=== PATIENT | male | born 1960 | race Caucasian/White ===

== ENCOUNTER 2018-02-12 03:26 | Observation (INO) | payer OTHER ==
[~2018-02-12] VITALS: Ht 190.5 cm; Wt 118.8 kg
[2018-02-12] VITALS (16 sets, daily range): BP systolic 109–129; BP diastolic 81–95
[~2018-02-12 03:26] MED LIST: ALBU2.5V36 INH; AMOX-559 PO; NAPR220C12 PO; PER PO; TEST1.25 TD
[2018-02-12 06:33] LABS: PLATELET COUNT, AUTOMATED 218 K/uL (150-450)
[2018-02-12] MEDS ORDERED: ceFAZolin(*) 1 GM VIAL 3 GM in NS(*) 0.9% 100 ML BAG 100 ML IVPB ONE (06:45)
[2018-02-12] MEDS ORDERED: MIDAZOLAM 2 MG/2 ML VIAL IVP PRN (06:45)
[2018-02-12] MEDS ORDERED: LIDOCAINE/SOD BICARB 8.4% SYR ID ONE (06:45)
[2018-02-12] MEDS ORDERED: FAMOTIDINE 20 MG TAB PO ONE (06:45)
[2018-02-12] MEDS ORDERED: NORMOSOL R SOLN(*) 1000 ML BAG 1,000 ML IV PRN (06:45)
[2018-02-12] MEDS ORDERED: SUGAMMADEX SOD 200 MG/2 ML SDV ONE (06:56)
[2018-02-12] MEDS ORDERED: ROCURONIUM BROM 10 MG/ML 10 ML ONE (06:56)
[2018-02-12] MEDS ORDERED: PROPOFOL EMUL(*) 10MG/ML 20 ML 20 ML ONE (06:56)
[2018-02-12] MEDS ORDERED: LIDOCAINE MPF 1% 5 ML VIAL ONE (06:56)
[2018-02-12] MEDS ORDERED: DEXAMETHASONE SOD 4 MG/ML VIAL ONE (06:56)
[2018-02-12] MEDS ORDERED: fentaNYL CITR 250 MCG/5 ML AMP ONE (06:56)
[2018-02-12] MEDS ORDERED: ONDANSETRON 4 MG/2 ML VIAL ONE (06:56)
[2018-02-12] MEDS ORDERED: KETAMINE HCL 200 MG/20 ML MDV ONE (06:59)
[2018-02-12] MEDS ORDERED: ROPIVACAINE 0.5% 20 ML VIAL ONE (07:21)
[2018-02-12] MEDS ORDERED: fentaNYL CITR 100 MCG/2 ML AMP ONE ×3 (10:52→11:51)
[2018-02-12] MEDS ORDERED: ACETAMINOPHEN(*)1000 MG/100 ML 100 ML IVPB ONE (11:54)
[2018-02-12] MEDS ORDERED: ONDANSETRON 4 MG/2 ML VIAL IVP PRN (11:55)
[2018-02-12] MEDS ORDERED: HYDROmorphone PCA 6 MG/30 ML IV PRN (11:55)
[2018-02-12] MEDS ORDERED: FLUSH 10 ML SYR IVP PRN (11:55)
[2018-02-12] MEDS ORDERED: NALOXONE HCL 0.4 MG/ML VIAL IVP PRN (11:55)
[2018-02-12] MEDS ORDERED: KETOROLAC 30 MG/ML VIAL ONE (11:57)
[2018-02-12] MEDS: ACETAMINOPHEN(*)1000 MG/100 ML 100 ML IVPB SCH ×2 (12:00→17:24)
--- NOTE | 2018-02-12 12:07 | Post Operative Progress Note ---
Post Operative Progress Note Date: February 12, 2018 Time: 11:59 Surgeon: Ramila Dictation number: [id number] Anesthesia: GETA by Dr. Galindo Pre-Op Diagnosis: Ventral incisional hernia Post-Op Diagnosis: LOUIS Findings: C/W dx Procedure(s): Robotic ventral hernia repair with mesh Specimen Removed:(May be N/A): None Complications: None Fluids: See anesthesia record Estimated Blood Loss: Minimal Date OP Note Dictated: February 12, 2018 Time OP Note Dictated: 12:00 RUMA LANDRY MD February 12, 2018 12:07
[2018-02-12] MEDS ORDERED: HYDROmorphone HCL 2 MG/ML SDV ONE (12:13)
[2018-02-12] MEDS: ceFAZolin(*) 2GM/D5W 50ML 50 ML IVPB SCH ×2 (12:23→20:47)
[2018-02-12] MEDS: NS(*) 0.9% 1000 ML BAG 1,000 ML IV PRN (16:25)
--- NOTE | 2018-02-12 17:07 | OPERATIVE REPORT 1 ---
EVENT DATE: February 12, 2018 SURGEON: Mata Mcgrath MD ANESTHESIOLOGIST: Stephen Good MD ANESTHESIA: General endotracheal anesthesia. PREOPERATIVE DIAGNOSIS Ventral incisional hernia. POSTOPERATIVE DIAGNOSIS Ventral incisional hernia. PROCEDURE PERFORMED Robotic ventral hernia repair with mesh. COMPLICATIONS None. CONDITION Stable. BLOOD LOSS Minimal. INDICATIONS This is a 57-year-old gentleman who presented to my office with a bulge at his umbilicus. I had performed a laparoscopic sigmoid colectomy on him a year and a half ago, and this was complicated by a coughing spell which resulted in a dehiscence after he had gone home, causing him to come back into the emergency room, and so I took him to surgery and closed the dehiscence. Over the last several months, he has noticed a bulge growing in this area. Exam is consistent with a hernia, and so he was consented for a robotic incisional hernia repair with mesh. DESCRIPTION OF PROCEDURE The patient was brought to the operating room, placed supine on the operating table. General endotracheal anesthesia was administered, and his abdomen was prepped and draped in a sterile fashion. Timeout was completed. I then anesthetized the skin in the right upper quadrant and made an 8 mm incision in the right subcostal skin. I used a Veress needle hooked up to the insufflator, inserted it in the abdomen without problems, and insufflated the abdomen to a pressure of 15 mmHg. I used the optical trocar with the camera and then focused. I inserted the first robotic port under direct visualization without any problems. Next under direct visualization, I placed a 12 mm port in the right lower quadrant and then an 8 mm port in the right mid abdomen. First, I noticed loops of intestine that were up and through the fascial defect. The fascial defect was measured, and it was 8 cm x 7 cm. Incidentally, I did put two V-Loc sutures in as well as a Ventralex mesh into the abdomen. The Ventralex mesh was a 15 x 13 cm piece of mesh. I then stripped the peritoneum down from around the fascial defect and very carefully took the bowel out of the fascial defect. I did this without any injuries except there was one little serosal rent that I placed a single 3-0 silk suture into. Once the bowel was out, I got as much of the peritoneum out of the hernia as I could, but the skin was very thin in this area, and so I was not too aggressive because I did not want to burn the skin or devascularize the overlying skin. I did clean off the fascial defect circumferentially. I then closed the fascial defect with running V-Loc absorbable sutures, and this required two layers because there was some tension. I decreased some of the pressure in the abdomen down to 10 mmHg to help facilitate closure of the fascia. I then deployed the mesh, Prolene side against the abdominal wall, and so the nonadherent wall was out towards the bowel. I used V-Loc to sew all the way around the mesh so no bowel could get under the mesh. I then placed a strip right in the middle of the mesh to prevent fluid buildup between the mesh and the abdominal wall and to promote adherence. Once this was completed, I was very happy with the repair. The robot was then undocked, and I under direct visualization used the [employer] MoverWalker suture passer and closed the 12 mm fascia in the right lower quadrant with a [id number] 0 Vicryl suture. This was airtight when this was completed, and the fascial defect was obliterated. I then desufflated the abdomen and removed all the instruments and ports. I then palpated the hernia, and there was still quite a bit of pocket that the hernia had been occupying, so I anesthetized the midline skin and made a vertical incision right over the hernia. I then used a #1 Prolene suture and closed what amounted to scar tissue in the midline all the way from the cephalad to the caudad end of this. I could see the fascia that I had closed was well approximated in the deep portion of this wound robotically. Once I closed the scar tissue in the midline, I excised a little bit of the overlying skin which had been stretched out. I then closed some of the subcutaneous tissue with running 3-0 Vicryl suture, and the skin was closed with running 4-0 Monocryl subcuticular sutures. I then cleaned and dried his abdomen and placed Steri-Strips over the incisions, followed by sterile surgical dressings. The patient was then awakened and extubated. He did do some coughing when he was being extubated and shortly thereafter, and I was putting counterpressure on his abdomen. We then put him in an abdominal binder , and he was transported to the recovery room in stable condition having tolerated the procedure without any apparent problems. WILMER
[2018-02-13] MEDS: ACETAMINOPHEN(*)1000 MG/100 ML 100 ML IVPB SCH ×3 (01:28→11:20)
[2018-02-13] MEDS: NS(*) 0.9% 1000 ML BAG 1,000 ML IV PRN ×2 (01:29→11:44)
[2018-02-13] MEDS: ceFAZolin(*) 2GM/D5W 50ML 50 ML IVPB SCH (03:29)
[2018-02-13 05:41] VITALS: BP 124/80
--- NOTE | 2018-02-13 06:58 | General Surgery Progress Note ---
Subjective Progress Notes Subjective Only complaint is postop pain. Not very hungry. No flatus. Urinating without problems. Physical Exam Vital Signs Date Time Temp Pulse Resp B/P (MAP) Pulse Ox O2 Delivery O2 Flow Rate FiO2 02/13/18 05:41 98.0 70 16 124/80 (95) 92 Room Air 02/12/18 23:17 1.0 General Appearance: Alert, Awake, No Acute Distress, Afebrile GI: Other (Soft, appropriate postop TTP, dressings C/D/I.) Extremities: Warm, Perfused Result Diagram: 02/12/18 0626 Assessment and Plan Problems: (1) Incisional hernia Status: Chronic Assessment & Plan: 02/13/18: POD#1 s/p Robotic ventral/incisional hernia repair. Will work on pain control. Ambulation. PT/OT. Await flatus. Continue clear diet. Continue ICT ACCOUNT MANAGER, add toradol, continue IV tylenol. Pulmonary hygiene. Hopefully home tomorrow. Condition Stable. Time Spent: < 30 min Exam Sepsis Risk: No Definite Risk Problem Qualifiers (1) Incisional hernia: Obstruction and gangrene presence: without obstruction or gangrene Qualified Codes: K43.2 - Incisional hernia without obstruction or gangrene RUMA LANDRY MD February 13, 2018 06:58
[2018-02-13 07:24] VITALS: BP 112/85
[2018-02-13] MEDS: KETOROLAC 30 MG/ML VIAL IVP SCH ×2 (08:34→11:21)
[2018-02-13] MEDS ORDERED: PANTOPRAZOLE SOD 40 MG IV VIAL IVP SCH (09:00)
[2018-02-13 10:39] VITALS: Ht 190.5 cm; Wt 118.8 kg
[2018-02-13 11:04] VITALS: BP 129/87
[2018-02-13] MEDS ORDERED: DOCU-416 PO (14:23)
[2018-02-13] MEDS ORDERED: OXYC-854 PO (14:23)
--- NOTE | 2018-02-13 14:50 | Short(Outpt) Discharge Summary ---
Discharge Summary Reason for Hosp/Final Diag: (1) Incisional hernia Status: Chronic Hospital Course & Plan: 02/13/18: POD#1 s/p Robotic ventral/incisional hernia repair. Will work on pain control. Ambulation. PT/OT. Await flatus. Continue clear diet. Continue PHARMACY RESIDENT, add toradol, continue IV tylenol. Pulmonary hygiene. Hopefully home tomorrow. Departure Discharge to: Home, Self Care Discharge Instructions Home Meds Active Scripts Docusate Sodium (COLACE) 100 Mg Capsule, 1 CAP PO BID, #30 CAP 0 Refills TAKE WITH A FULL GLASS OF WATER Prov:RUMA LANDRY MD 02/13/18 Oxycodone Hcl/Acet 5/325 Mg (ENDOCET 5-325 TABLET) 1 Each Tablet, 1-2 TAB PO Q4H Y for PAIN, #30 TAB 0 Refills Prov:RUMA LANDRY MD 02/13/18 Reported Medications Naproxen Sodium (ALEVE) 220 Mg Capsule, 220 MG PO PRN Y for PAIN, CAPSULE 04/30/16 Follow up Referrals: General Surgery - 03/09/18 @ Surgery, General with Ruma Landry Md You have a follow up appointment scheduled with Dr. Landry on 03/09/18, at 11:15am. Diet: Regular Activity: No Heavy Lifting Special Instructions: You may remove the white surgical dressings on Friday, February 14, 2018, then you can shower. After showering, leave the incisions open to air but leave the steristrips in place until they fall off on their own. Do not immerse the incisions for 2 weeks. Wear the abdominal binder at all times other than while showering for the next month. Avoid any activities that involve straining or lifting more than 10 pounds for 6 weeks. Problem Qualifiers (1) Incisional hernia: Obstruction and gangrene presence: without obstruction or gangrene Qualified Codes: K43.2 - Incisional hernia without obstruction or gangrene RUMA LANDRY MD February 13, 2018 14:50
[2018-02-13] MEDS ORDERED: HYDROmorphone HCL 2 MG/ML SDV IVP PRN (14:55)
[2018-02-13 15:30] VITALS: BP 134/91
[2018-02-13] MEDS ORDERED: DOCUSATE SODIUM 100 MG CAP PO SCH (21:00)
== END 2018-02-13 18:25 | disposition home or self-care (01) ==
LOC: OR 03:26 → MED 14:10
PROVIDERS: ADMIT Surgery; ATTEND Surgery
DX: K43.2 Incisional hernia without obstruction or gangrene (principal)
CPT/HCPCS: 36415; 49654; 85025; 97161; 97165; C1781; C9113; G0378; J0131; J0690; J1100; J1170; J1885; J2001; J2405; J2704; J2795; J3010; J3490; J7030; J7050; S2900

== ENCOUNTER → 2018-03-05 | Outpatient (CLI) | payer OTHER ==
[2018-02-13 10:39] VITALS: BMI 32.7
[~2018-03-05] MED LIST changes: +DOCU-416 PO; +IOPAMIDOL 76% 75 ML INFUS BTL 75 ML ONE; +OXYC-854 PO
--- NOTE | 2018-03-05 13:10 | RADIOLOGY IMAGING REPORT ---
FACILITY: [facility] PATIENT NAME: Italo Johnson : 1960 MR: [id number] V: [id number] EXAM DATE: ORDERING PHYSICIAN: RUMA PATRICIO TECHNOLOGIST: Location: [facility] - [place] Patient: Italo Johnson : 1960 Visit/Account:[id number] Date of Sevice: 03/05/2018 ABDOMEN/PELVIS WITH CONTRAST HISTORY: Generalized abdominal pain, recent umbilical hernia repair. TECHNIQUE: CT abdomen and pelvis 100 cc of Isovue 370 IV. One of the following dose optimization te chniques was utilized in the performance of this exam: automated exposure control; adjustment of the mA and/or kV according to the patient's size; or use of an iterative reconstruction technique. Speci fic details can be referenced in the facility's radiology CT exam operational policy. COMPARISON: CT abdomen and pelvis 03/21/2016. FINDINGS: Liver/gallbladder: The liver demonstrates normal enhancement. Gallbladder is unremarkable. Spleen: Normal. Adrenals: Normal. Pancreas: Normal enhancement without evidence of mass. Kidneys/: The right and left kidney demonstrate normal enhancement without evidence of hydronephro sis or mass. Both ureters are normal. Pelvis: Urinary bladder is normal. GI: There are surgical changes with anastomosis in the sigmoid colon. Diverticular changes are seen, without evidence of pericolonic fat stranding or inflammation. Small bowel and stomach are normal. Vessels/spaces/nodes: Negative. Bones/soft tissues: There are postoperative changes from ventral hernia repair with mesh identified. There is no evidence of subcutaneous fluid collection or abscess. Visualized lung bases: Clear. IMPRESSION: 1. Postoperative changes from ventral abdominal hernia repair with mesh. No evidence of loculated flu id collection or abscess. 2. Postoperative changes with anastomosis in the sigmoid colon. 3. Sigmoid diverticular changes. No evidence of diverticulitis. Report Dictated By: Liam Patel at 03/05/2018 1:02 PM Report E-Signed By: Liam Patel at 03/05/2018 1:06 PM [id number]
== END ==
LOC: CT 12:07
PROVIDERS: ATTEND Family Medicine
DX: K57.30 Diverticulosis of large intestine without perforation or abscess without bleeding (principal); Z98.890 Other specified postprocedural states
CPT/HCPCS: 74177; Q9967

== ENCOUNTER 2018-07-14 08:07 | Inpatient (IN) | payer OTHER ==
[2018-07-14] VITALS (15 sets, daily range): BP systolic 97–133; BP diastolic 72–91
[~2018-07-14] VITALS: Ht 190.5 cm; Wt 114.0 kg
[~2018-07-14 08:07] MED LIST changes: -IOPAMIDOL 76% 75 ML INFUS BTL 75 ML ONE
[2018-07-14] MEDS ORDERED: ALB6.7R INH (08:19)
[2018-07-14] MEDS ORDERED: METH4TAB66 PO (08:19)
[2018-07-14] MEDS ORDERED: AMOX-559 PO (08:19)
[2018-07-14] MEDS ORDERED: ALBU2.5V36 INH (08:19)
[2018-07-14] MEDS ORDERED: LR IV ONE (08:35)
--- NOTE | 2018-07-14 08:49 | EKG ---
[place] [facility] [place]IENT NAME: EDWIN CHARLES : [id number] MR: [id number] V: [id number] EXAM DATE: ORDERING PHYSICIAN: COLIN BAEZ TECHNOLOGIST: JAVY Toscano Reason : SYNCOPE Blood Pressure : / mmHG Vent. Rate : 122 BPM Atrial Rate : 122 BPM P-R Int : 142 ms QRS Dur : 088 ms QT Int : 328 ms P-R-T Axes : 079 233 057 degrees QTc Int : 467 ms Sinus tachycardia Right superior axis deviation Pulmonary disease pattern Right ventricular hypertrophy Abnormal ECG When compared with ECG of 01-AUG-2016 10:17, Relatively unchanged except now tachycardic Confirmed by CHRISTIANA WILBURN ([id number]) on 07/14/2018 4:03:19 PM Referred By: NESTOR Confirmed By:CHRISTIANA WILBURN
[2018-07-14 08:51] LABS: PLATELET COUNT, AUTOMATED 154 K/uL (150-450)
--- NOTE | 2018-07-14 08:59 | RADIOLOGY IMAGING REPORT ---
FAC[place] [facility] [place]IENT NAME: Italo Johnson : 1960 MR: [id number] V: [id number] EXAM DATE: ORDERING PHYSICIAN: COLIN BAEZ TECHNOLOGIST: Location: [facility] - [place] Patient: Italo Johnson : 1960 Visit/Account:[id number] Date of Sevice: 07/14/2018 CHEST SINGLE AP HISTORY: Shortness of breath COMPARISON: Chest x-ray 05/03/2011 FINDINGS: Cardiomediastinal contours: Normal Lungs and pleura: Normal Bones/soft tissues: Normal Other findings: None significant IMPRESSION: 1. No acute cardiopulmonary disease. No change. Report Dictated By: Vidal Nuñez MD at 07/14/2018 8:53 AM Report E-Signed By: Viadl Nuñez MD at 07/14/2018 8:54 AM WSN:[id number]
--- NOTE | 2018-07-14 09:32 | ER Report ---
History and Physical Time Seen By MD: 08:20 Hx. of Stated Complaint: Pt had syncopal episode this a.m. while walking out to car. States he's been being treated for a week for a sinus infection. O2 sat 84% on room air, heart rate 127 initially. (COLIN BAEZ MD) HPI/ROS CHIEF COMPLAINT: shortness of breath, syncope HISTORY OF PRESENT ILLNESS: Patient presents after syncopal episode today. Patient has had one week of gradually increasing shortness of breath. Patient was treated 2 weeks ago for sinusitis with Augmentin and finished medication one week ago. Since then he hasn't had gradually increasing shortness of breath with dry cough. Patient was seen 2 days ago at urgent care and was given inhaler which she has taken 3 times. States that this slightly helps his shortness of breath. He did not attempt at this morning. He woke up this morning feeling mildly short of breath. At one point he was sitting in kitchen shortly after awakening and began sweating. Patient then got up, walked outside to his truck, walked back and felt lightheaded and collapsed on his couch. He believes he had approximately one minute loss of consciousness. Patient did not have chest pain at this time. He notes mild chest pain with shortness of breath and cough. He continues to be short of breath here. Patient has some nausea. He denies vomiting, abdominal pain, recent travel, leg swelling. He does note that he has been getting some leg cramping on the right leg. REVIEW OF SYSTEMS: Constitutional: No fever, no chills. Eyes: No discharge. ENT: mild sore throat Cardiovascular: above Respiratory: above Gastrointestinal: No abdominal pain, no vomiting. Genitourinary: No hematuria. Musculoskeletal: No back pain. Skin: No rashes. Neurological: No headache. Remainder of the 14 system rev: Yes (COLIN BAEZ MD) Allergies: Coded Allergies: No Known Drug Allergies (Unverified , 07/14/18) Home Meds Reported Medications Albuterol Sulfate (PROVENTIL HFA) 6.7 Gm Inh, 1-2 PUFF INH 3-4XD, INH 07/14/18 Albuterol Sulfate 0.083% (ALBUTEROL SULFATE 0.083%) 2.5 Mg/3 Ml Vial.neb, 2.5 MG INH, INH 07/14/18 Amoxicillin/Pot Clav 875-125 Mg Tab (AUGMENTIN 875-125 TABLET) 1 Each Tablet, 1 TAB PO Q12H, TAB 07/14/18 Methylprednisolone (METHYLPREDNISOLONE) 4 Mg Tab.ds.pk, 4 MG PO DIRECTED, TAB 07/14/18 Naproxen Sodium (ALEVE) 220 Mg Capsule, 220 MG PO PRN PRN for PAIN, CAPSULE 04/30/16 Reviewed Nurses Notes: Yes Old Medical Records Reviewed: Yes (COLIN BAEZ MD) Hx Smoking: No (CHEWS TOBACCO: 2 cans per week) Smoking Status: Unknown if Ever Smoked Hx Substance Use Disorder: No Hx Alcohol Use: Yes (COLIN BAEZ MD) Constitutional Vital Sign - Last 24 Hours 07/14/18 07/14/18 07/14/18 07/14/18 08:07 08:12 08:16 08:17 Pulse ? 122 Resp 27 B/P (MAP) 132/88 (103) Pulse Ox 84 07/14/18 07/14/18 07/14/18 07/14/18 08:20 08:22 08:27 08:30 Temp 97.6 Pulse 113 113 114 Resp 18 22 18 B/P (MAP) 132/88 119/75 (90) Pulse Ox 84 93 93 O2 Delivery Room Air 07/14/18 07/14/18 07/14/18 08:32 08:37 08:42 Pulse 112 122 111 Resp 21 21 9 Pulse Ox 94 88 95 (HOLLIE BAEZ MD) Physical Exam General Appearance: The patient is alert, has no immediate need for airway protection and no signs of toxicity. Eyes: Pupils equal and round no pallor or injection. ENT, Mouth: Mucous membranes are moist. Respiratory: There are no retractions, lungs are clear to auscultation. Cardiovascular: tachycardia, no murmurs, no carotid bruit Gastrointestinal: Abdomen is soft and non tender, no masses, bowel sounds normal. Neurological: alert, oriented Skin: Warm and dry, no rashes. Musculoskeletal: Neck is supple non tender. right lower extremity; calf ttp, 2 punctate areas of ecchymosis DIFFERENTIAL DIAGNOSIS: After history and physical exam differential diagnosis was considered for shortness of breath including but not limited to pulmonary infectious process, COPD, asthma, pulmonary embolus and congestive heart failure.chest pain including but not limited to myocardial ischemia, pericarditis pulmonary embolus, chest wall pain, pleural inflammation and pulmo nary infectious causes. (COLIN BAEZ MD) Medical Decision Making Data Points Result Diagram: 07/14/18 0830 07/14/18 0830 Laboratory Hematology Test 07/14/18 00:00 07/14/18 08:30 07/14/18 11:32 07/14/18 12:27 D-Dimer Quantitative (PE/DVT) 11.20 ug/ml (0-0.50) Red Blood Count 5.13 M/uL (4.00-5.60) Mean Corpuscular Volume 101.6 fL (80.0-96.0) Mean Corpuscular Hemoglobin 34.6 pg (26.0-33.0) Mean Corpuscular Hemoglobin Concent 34.0 g/dL (32.0-36.0) Red Cell Distribution Width 13.1 % (11.5-14.5) Mean Platelet Volume 7.5 fL (7.2-11.1) Neutrophils (%) (Auto) 79.4 % (39.4-72.5) Lymphocytes (%) (Auto) 11.0 % (17.6-49.6) Monocytes (%) (Auto) 7.4 % (4.1-12.4) Eosinophils (%) (Auto) 1.7 % (0.4-6.7) Basophils (%) (Auto) 0.5 % (0.3-1.4) Nucleated RBC Relative Count (auto) 0.0 /100WBC Neutrophils # (Auto) 6.6 K/uL (2.0-7.4) Lymphocytes # (Auto) 0.9 K/uL (1.3-3.6) Monocytes # (Auto) 0.6 K/uL (0.3-1.0) Eosinophils # (Auto) 0.1 K/uL (0.0-0.5) Basophils # (Auto) 0.0 K/uL (0.0-0.1) Nucleated RBC Absolute Count (auto) 0.00 K/uL Peripheral Blood Smear No Y/N Sodium Level 137 mmol/L (137-145) Potassium Level 4.1 mmol/L (3.5-5.0) Chloride Level 103 mmol/L (98-107) Carbon Dioxide Level 23 mmol/L (22-30) Blood Urea Nitrogen 18 mg/dl (9-21) Creatinine 1.00 mg/dl (0.66-1.25) Glomerular Filtration Rate Calc > 60.0 Random Glucose 140 mg/dl (75-110) Calcium Level 8.8 mg/dl (8.4-10.2) Total Bilirubin 1.6 mg/dl (0.2-1.3) Aspartate Amino Transf (AST/SGOT) 27 U/L (0-35) Alanine Aminotransferase (ALT/SGPT) 26 U/L (0-56) Alkaline Phosphatase 104 U/L (0-126) Troponin I 0.054 ng/ml B-Type Natriuretic Peptide 95 pg/ml (0-100) Total Protein 7.1 g/dl (6.3-8.2) Albumin 3.8 g/dl (3.5-5.0) Lipase 31 U/L (23-300) Lactate 2.0 mmol/L (0.7-2.1) Chemistry Test 07/14/18 00:00 07/14/18 08:30 07/14/18 11:32 07/14/18 12:27 D-Dimer Quantitative (PE/DVT) 11.20 ug/ml (0-0.50) White Blood Count 8.3 k/uL (4.5-11.0) Red Blood Count 5.13 M/uL (4.00-5.60) Hemoglobin 17.7 g/dL (14.0-18.0) Hematocrit 52.1 % (42.0-52.0) Mean Corpuscular Volume 101.6 fL (80.0-96.0) Mean Corpuscular Hemoglobin 34.6 pg (26.0-33.0) Mean Corpuscular Hemoglobin Concent 34.0 g/dL (32.0-36.0) Red Cell Distribution Width 13.1 % (11.5-14.5) Platelet Count 154 K/uL (150-450) Mean Platelet Volume 7.5 fL (7.2-11.1) Neutrophils (%) (Auto) 79.4 % (39.4-72.5) Lymphocytes (%) (Auto) 11.0 % (17.6-49.6) Monocytes (%) (Auto) 7.4 % (4.1-12.4) Eosinophils (%) (Auto) 1.7 % (0.4-6.7) Basophils (%) (Auto) 0.5 % (0.3-1.4) Nucleated RBC Relative Count (auto) 0.0 /100WBC Neutrophils # (Auto) 6.6 K/uL (2.0-7.4) Lymphocytes # (Auto) 0.9 K/uL (1.3-3.6) Monocytes # (Auto) 0.6 K/uL (0.3-1.0) Eosinophils # (Auto) 0.1 K/uL (0.0-0.5) Basophils # (Auto) 0.0 K/uL (0.0-0.1) Nucleated RBC Absolute Count (auto) 0.00 K/uL Peripheral Blood Smear No Y/N Glomerular Filtration Rate Calc > 60.0 Calcium Level 8.8 mg/dl (8.4-10.2) Total Bilirubin 1.6 mg/dl (0.2-1.3) Aspartate Amino Transf (AST/SGOT) 27 U/L (0-35) Alanine Aminotransferase (ALT/SGPT) 26 U/L (0-56) Alkaline Phosphatase 104 U/L (0-126) Troponin I 0.054 ng/ml B-Type Natriuretic Peptide 95 pg/ml (0-100) Total Protein 7.1 g/dl (6.3-8.2) Albumin 3.8 g/dl (3.5-5.0) Lipase 31 U/L (23-300) Lactate 2.0 mmol/L (0.7-2.1) Coagulation Test 07/14/18 00:00 07/14/18 12:27 D-Dimer Quantitative (PE/DVT) 11.20 ug/ml (HOLLIE BAEZ MD) Microbiology Microbiology Date/Time Source Procedure Growth Status 07/14/18 08:58 Blood Peripheral Draw Blood Culture - Preliminary NO GROWTH SO FAR, SET LATE. REINCUBATED Resulted 07/14/18 08:30 Blood Peripheral Draw Blood Culture - Preliminary NO GROWTH SO FAR, SET LATE. REINCUBATED Resulted (HOLLIE BAEZ MD) EKG/Imaging EKG Interpretation 12 lead EKG: Rhythm: sinus tachycardia [place]: right axis deviation QRS: normal ST segments: normal [ ] Monitor Interpretation: Sinus Tachycardia (COLIN BAEZ MD) ED Course/Re-evaluation ED Course Episode of syncope today also accompanied by shortness of breath. Mildly tachypneic and mildly hypoxic when he arrived in the emergency department. A bedside ultrasound was performed and right heart strain was noted. A d-dimer was positive as well, and a CTA of the chest was obtained. The CTA of the chest shows by lateral PEs with evidence of right heart strain on CT scan. The patient was given heparin. TPA was considered given his right heart strain. He has been hemodynamically stable however. At this point he will be admitted to the ICU for further monitoring and anticoagulation. Decision to Disposition Date: Jul 14, 2018 Decision to Disposition Time: 13:27 (HOLLIE BAEZ MD) Depart Departure Latest Vital Signs Vital Signs Date Time Temp Pulse Resp B/P (MAP) Pulse Ox O2 Delivery O2 Flow Rate FiO2 07/14/18 08:42 111 9 95 07/14/18 08:30 119/75 (90) 07/14/18 08:20 97.6 Room Air (HOLLIE BAEZ MD) Impression: Primary Impression: Pulmonary embolism Condition: Improved Disposition: Admitted from ER Referrals: RUMA PATRICIO MD (PCP) Problem Qualifiers Primary Impression: Pulmonary embolism Pulmonary embolism type: other Chronicity: acute Acute cor pulmonale presence: without acute cor pulmonale Qualified Codes: I26.99 - Other pulmonary embolism without acute cor pulmonale COLIN BAEZ MD Jul 14, 2018 09:32 HOLLIE BAEZ MD Jul 14, 2018 13:29
[2018-07-14] MEDS ORDERED: IOPAMIDOL 76% 75 ML INFUS BTL 0 ML ONE (11:25)
[2018-07-14] MEDS ORDERED: NS(*) 0.9% 50 ML BAG 50 ML ONE (11:25)
[2018-07-14] MEDS ORDERED: IOPAMIDOL 76% 100 ML INFUS BTL 100 ML ONE (11:25)
[2018-07-14] MEDS ORDERED: HEPARIN (PORC) 5000 UN/ML VIAL IVP ONE (11:30)
[2018-07-14] MEDS ORDERED: [UNRECOGNIZED DRUG - OTHER] IV ONE ×2 (11:30→11:55)
[2018-07-14] MEDS ORDERED: HEPARIN* SOD/D5W 25000 U/500ML 500 ML IV ONE (12:00)
--- NOTE | 2018-07-14 12:39 | RADIOLOGY IMAGING REPORT ---
FACILITY: [facility] [place] PATIENT NAME: Italo Johnson : 1960 MR: [id number] V: [id number] EXAM DATE: ORDERING PHYSICIAN: COLIN BAEZ TECHNOLOGIST: Location: [facility] - [place], [place] Patient: Italo Johnson : 1960 Visit/Account:[id number] Date of Sevice: 07/14/2018 EXAMINATION: CT CHEST PULMONARY ANGIOGRAM COMPARISON: None available HISTORY: Shortness of breath. Elevated d-dimer. Lightheadedness. Dizziness. PROCEDURE: Pulmonary arterial phase imaging of the chest with 100 mL intravenous Isovue 370. Reconstr uction of the source data set includes multiplanar 2D in the sagittal and coronal planes, and 3D connie nstructed coronal slab MIP series. One of the following dose optimization techniques was utilized in the performance of this exam: Autom ated exposure control; adjustment of the mA and/or kV according to the patient's size; or use of an i terative reconstruction technique. Specific details can be referenced in the facility's radiology C T exam operational policy. FINDINGS: Pulmonary vasculature: There is good contrast opacification of the pulmonary arterial system. 3.6 cm dilated main pulmonary artery. Study is positive for a moderately large amount of embolus within the right more so than left lung. On the right, there is a small amount of nonocclusive embolus in the u pper lobar branch extending into a near occlusive anterior segmental and subsegmental embolus. Nonocc lusive thrombus is present in the interlobar artery and extends into both the right middle and lower lobe lobar vessels. There are multiple small nonocclusive segmental and subsegmental emboli within th e right middle and lower lobe. On the left, there is a near occlusive filling defect in the lingula s egmental branch as well as a few small occlusive subsegmental emboli. A nonocclusive embolus is in th e left lower lobar artery and extends into multiple predominantly nonocclusive segmental and subsegme ntal emboli. Cardiac and mediastinum: Cardiac chamber size is within normal limits although there is flattening of the interventricular septum with an elevated RV: LV ratio of 1.3. No pericardial effusion. No thorac ic aortic aneurysm. Lymph nodes: Negative. Lungs and pleura: Approximately 2.3 cm region of peripheral consolidation in the lateral lingula is m ost suspicious for pulmonary infarct. Patchy ill-defined tree-in-bud density in the left lower lobe s uperior segment is most suggestive of small airway inflammation. No pneumothorax, edema, or effusion. Airways: Negative. Upper abdomen: No acute findings. Proximal descending colon diverticulosis. Osseous structures: No acute findings. IMPRESSION: 1. The study is positive for a moderately large volume of pulmonary embolus within the right more so than left lung. 2. CT findings consistent with acute right ventricular strain. Pulmonary/critical care consultation i s recommended. 3. Small infarct in the lateral lingula. 4. Left lower lobe superior segment tree-in-bud density is most suggestive of small airway inflammati on. Results were discussed with COLIN BAEZ at 07/14/2018 12:32 PM. Report Dictated By: Braulio Chacon MD at 07/14/2018 12:24 PM Report E-Signed By: Braulio Chacon MD at 07/14/2018 12:34 PM WSN:[id number]
[2018-07-14 12:58] LABS: INR 1.17
[2018-07-14] MEDS ORDERED: NS(*) 0.9% 1000 ML BAG 1,000 ML IV PRN (14:59)
--- NOTE | 2018-07-14 15:42 | History & Physical ---
History of Present Illness History of Present Illness 58yo male with a h/o diverticulitis who came to the ER for progressive BRYANT and syncope. About 3-4 weeks ago, he noted BRYANT. Fort the last 2 weeks, he has had sinus infection symptoms, chest tightness with the BRYANT and increased tiredness. He was put on Amoxicillin, a steroid pack, albuterol inhaler and Flonase. The inhaler has helped a bit, but he has continued to have BRYANT. 3 days ago, he was at high elevation working on power lines. He could barely walk 100 yards. Today, he became very sweaty, but it cleared. He then started his truck, came back in the house and then felt like he was going to pass out. He made it to the couch before everything went black and he passed out. He came to the ER. He has had bilateral leg cramps for the last couple weeks, but no swelling. He doesn't smoke. His last colonoscopy was about 2 years ago. He has not had prostate cancer screening. His sister of a PE in her 30's. History Problems: (1) S/P colectomy Status: Chronic (2) Incisional hernia Status: Resolved (3) Postoperative wound dehiscence Status: Resolved (4) Diverticulitis large intestine w/o perforation or abscess w/o bleeding Status: Resolved Home Meds Reported Medications Albuterol Sulfate (PROVENTIL HFA) 6.7 Gm Inh, 1-2 PUFF INH 3-4XD, INH 07/14/18 Albuterol Sulfate 0.083% (ALBUTEROL SULFATE 0.083%) 2.5 Mg/3 Ml Vial.neb, 2.5 MG INH, INH 07/14/18 Amoxicillin/Pot Clav 875-125 Mg Tab (AUGMENTIN 875-125 TABLET) 1 Each Tablet, 1 TAB PO Q12H, TAB 07/14/18 Methylprednisolone (METHYLPREDNISOLONE) 4 Mg Tab.ds.pk, 4 MG PO DIRECTED, TAB 07/14/18 Naproxen Sodium (ALEVE) 220 Mg Capsule, 220 MG PO PRN PRN for PAIN, CAPSULE 04/30/16 Allergies: Coded Allergies: No Known Drug Allergies (Unverified , 07/14/18) 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 Rare alcohol use. Hx Smoking: No (CHEWS TOBACCO: 2 cans per week) Smoking Status: Unknown if Ever Smoked Caffeine Intake: Coffee Caffeine/Cups Per Day: 3 Hx Alcohol Use: Yes Hx Substance Use Disorder: No Social Drug Use: Never Review of Systems All Systems Reviewed/Normal: Yes, Except as Noted Exam Vital Signs Vital Signs Date Time Temp Pulse Resp B/P (MAP) Pulse Ox O2 Delivery O2 Flow Rate FiO2 07/14/18 14:50 98 16 94 Nasal Cannula 3 07/14/18 14:30 123/87 (99) 07/14/18 08:20 97.6 General Appearance: Alert, Awake, No Acute Distress Eyes: PERRLA Cardiovascular: Regular Rate and Rhythm, No JVD Respiratory: Clear to Auscultation GI: Abd Soft and Non-Tender (vertical scar inferior to umbilicus without any noticable hernia) Extremities: No Edema Integumentary: No Jaundice, No Cyanosis Medical Decision Making Data Points Result Diagram: 07/14/18 0830 07/14/18 0830 Item Value Date Time Mean Corpuscular Volume 101.6 fL H 07/14/18 0830 Platelet Count 154 K/uL 07/14/18 0830 Neutrophils (%) (Auto) 79.4 % H 07/14/18 0830 D-Dimer Quantitative (PE/DVT) 11.20 ug/ml H 07/14/18 0000 Prothromb Time International Ratio 1.17 07/14/18 1227 Lactate 2.0 mmol/L 07/14/18 1132 Lactate 2.0 mmol/L 07/14/18 0830 Troponin I 0.054 ng/ml 07/14/18 0830 B-Type Natriuretic Peptide 95 pg/ml 07/14/18 0830 Total Protein 7.1 g/dl 07/14/18 0830 Albumin 3.8 g/dl 07/14/18 0830 Lipase 31 U/L 07/14/18 0830 Total Bilirubin 1.6 mg/dl H 07/14/18 0830 Aspartate Amino Transf (AST/SGOT) 27 U/L 07/14/18 0830 Alanine Aminotransferase (ALT/SGPT) 26 U/L 07/14/18 0830 Alkaline Phosphatase 104 U/L 07/14/18 0830 EKG / Imaging EKG Interpretation Sinus tachy at 122bpm. No ST-T abnormalities. Poor R wave progression. Imaging CTA of Chest - 1. The study is positive for a moderately large volume of pulmonary embolus within the right more so than left lung. 2. CT findings consistent with acute right ventricular strain. Pulmonary/critical care consultation is recommended. 3. Small infarct in the lateral lingula. 4. Left lower lobe superior segment tree-in-bud density is most suggestive of small airway inflammation. CXR - 1. No acute cardiopulmonary disease. No change. Assessment and Plan Problems: (1) Pulmonary embolism Status: Acute Assessment & Plan: He presented with 3-4 weeks of progressive BRYANT and then a syncopal episode today. Bilateral PE with evidence of right heart strain. BP/P stable. He has mild increased work of breathing and hypoxia. He has been started on a Heparin drip. Will change to Lovenox. His sister of a PE in her 30's. Hypercoagulable workup pending. Will watch in the ICU. Copies to: RUMA PATRICIO MD ; Venous Thromboembolism Antithrombotics Is Pt On Any Antithrombotics?: Yes Exam Sepsis Risk: No Definite Risk Problem Qualifiers (1) Pulmonary embolism: Pulmonary embolism type: other Chronicity: acute Acute cor pulmonale presence: without acute cor pulmonale Qualified Codes: I26.99 - Other pulmonary embolism without acute cor pulmonale CHRISTIANA WILBURN MD Jul 14, 2018 15:42
[2018-07-15] VITALS (11 sets, daily range): BP systolic 97–135; BP diastolic 70–86; Ht 190.5 cm; Wt 114.0 kg
[2018-07-15 06:35] LABS: PLATELET COUNT, AUTOMATED 140 K/uL (150-450)
[2018-07-15] MEDS: APIXABAN 2.5 MG TABLET PO SCH ×2 (10:10→20:34)
--- NOTE | 2018-07-15 12:02 | Hospitalist Progress Note ---
Subjective Progress Notes Subjective He reports "doing alright". Some minimal pleuritic pain. No dyspnea at rest. No bleeding on the heparin. Physical Exam Vital Signs Date Time Temp Pulse Resp B/P (MAP) Pulse Ox O2 Delivery O2 Flow Rate FiO2 07/15/18 11:25 105 16 113/86 (95) 92 Nasal Cannula 2.0 07/15/18 06:00 97.5 Intake and Output 07/15/18 07:00 Intake Total 4128 ml Balance 4128 ml Intake Oral 300 ml IV Total 3828 ml # Voids 2 General Appearance: Alert, Awake Cardiovascular: Regular Rate and Rhythm, No Edema Respiratory: Clear to Auscultation GI: Soft and Non-Tender Extremities: Warm, Perfused Psych: Alert & Oriented X3 Result Diagram: 07/15/1862207/15/18622 Monitor Interpretation: Normal Sinus Rhythm Assessment and Plan Problems: (1) Pulmonary embolism Status: Acute Assessment & Plan: He presented with 3-4 weeks of progressive BRYANT and then a syncopal episode yesterday. CT pulmonary angiogram showed bilateral PE with evidence of right heart strain. His BP/P have been stable. He has mild hypoxia and requiring minimal oxygen at this time. He was started on an IV Heparin drip. Will transition to Eliquis 10mg PO BID for first 7 days then to 5mg PO BID thereafter. His sister of a PE in her 30's. His hypercoagulable workup is still pending. He should be able to transfer out of the ICU today. Exam Sepsis Risk: No Definite Risk Problem Qualifiers (1) Pulmonary embolism: Pulmonary embolism type: other Chronicity: acute Acute cor pulmonale pr esence: without acute cor pulmonale Qualified Codes: I26.99 - Other pulmonary embolism without acute cor pulmonale VANESSA VALDIVIA MD Jul 15, 2018 12:02
[2018-07-16 04:14] VITALS: BP 114/76
[2018-07-16 05:47] LABS: PLATELET COUNT, AUTOMATED 142 K/uL (150-450)
[2018-07-16 08:10] VITALS: BP 128/73
[2018-07-16] MEDS: APIXABAN 2.5 MG TABLET PO SCH (08:21)
[2018-07-16] MEDS ORDERED: INFLUENZA VIRUS VAC 0.5ML SYR IM ONLY ONE (09:00)
[2018-07-16] MEDS ORDERED: APIX5TAB PO (09:30)
--- NOTE | 2018-07-16 09:36 | Hospitalist Depart ---
Discharge Summary Reason for Hosp/Final Diag: (1) Pulmonary embolism Status: Acute Hospital Course & Plan: He presented with 3-4 weeks of progressive dyspnea. A CT scan of the chest showed bilateral pulmonary emboli. He was initially started on Lovenox, but is now converted to Eliquis. He will require treatment with an initial loading dose of 10mg twice daily for 7 days and the can convert to maintenance dose of 5mg twice daily. He does have a family history of clotting disorders, and will likely require lifelong anticoagulation. Departure Latest Vital Signs Vital Signs 07/16/18 08:10 Temp 98.7 Pulse 99 Resp 20 B/P (MAP) 128/73 (91) Pulse Ox 93 O2 Delivery Nasal Cannula O2 Flow Rate 2.0 Weight (Pounds): 251 Weight (Ounces): 5.0 Result Diagram: 07/16/1838 07/16/18537 Condition: Improved Discharge: Home, Self Care Discharge Instructions Home Meds Active Scripts Apixaban (ELIQUIS) 5 Mg Tablet, 5 MG PO BID, #60 TAB Start after initial loading dose Prov:RUMA RIBEIRO DO 07/16/18 Apixaban (ELIQUIS) 5 Mg Tablet, 2 TAB PO BID, #28 TAB Prov:RUMA RIBEIRO DO 07/16/18 Discontinued Reported Medications Albuterol Sulfate (PROVENTIL HFA) 6.7 Gm Inh, 1-2 PUFF INH 3-4XD, INH 07/14/18 Albuterol Sulfate 0.083% (ALBUTEROL SULFATE 0.083%) 2.5 Mg/3 Ml Vial.neb, 2.5 MG INH, INH 07/14/18 Amoxicillin/Pot Clav 875-125 Mg Tab (AUGMENTIN 875-125 TABLET) 1 Each Tablet, 1 TAB PO Q12H, TAB 07/14/18 Methylprednisolone (METHYLPREDNISOLONE) 4 Mg Tab.ds.pk, 4 MG PO DIRECTED, TAB 07/14/18 Naproxen Sodium (ALEVE) 220 Mg Capsule, 220 MG PO PRN PRN for PAIN, CAPSULE 04/30/16 Diet: Regular Activity: As Tolerated Copies to: RUMA PATRICIO MD ; Venous Thromboembolism Antithrombotics Is Pt On Any Antithrombotics?: Yes Problem Qualifiers (1) Pulmonary embolism: Pulmonary embolism type: other Chronicity: acute Acute cor pulmonale presence: without acute cor pulmonale Qualified Codes: I26.99 - Other pulmonary embolism without acute cor pulmonale RUMA RIBEIRO DO Jul 16, 2018 09:36
== END 2018-07-16 12:15 | disposition home or self-care (01) | DRG 176 ==
LOC: ER 08:41 → ICU 14:26 → MED 07-15 12:25
PROVIDERS: ADMIT Internal Medicine; ATTEND Internal Medicine
DX: I26.99 Other pulmonary embolism without acute cor pulmonale (principal); R55 Syncope and collapse; F17.220 Nicotine dependence, chewing tobacco, uncomplicated; R00.0 Tachycardia, unspecified; Z23 Encounter for immunization; R09.02 Hypoxemia
CPT/HCPCS: 36415; 36416; 71045; 71275; 81241; 81291; 82040; 82247; 82310; 82374; 82435; 82565; 82947; 82948; 83090; 83605; 83690; 83880; 84075; 84132; 84155; 84295; 84450; 84460; 84484; 84520; 85025; 85300; 85303; 85306; 85379; 85520; 85610; 85730; 86147; 87040; 87088; 90674; 93005; J1644; J7050; J7120; Q9967

== ENCOUNTER → 2018-07-31 | Outpatient (CLI) | payer OTHER ==
[2018-07-15 16:04] VITALS: BMI 31.4
[~2018-07-31] MED LIST changes: +ALB6.7R INH; +APIX5TAB PO; +METH4TAB66 PO
--- NOTE | 2018-07-31 09:56 | RADIOLOGY IMAGING REPORT ---
FACILITY: [facility] PATIENT NAME: Italo Johnson : 1960 MR: [id number] V: [id number] EXAM DATE: ORDERING PHYSICIAN: GUNJAN INTERIANO TECHNOLOGIST: Location: [facility] Patient: Italo Johnson : 1960 Visit/Account:[id number] Date of Sevice: 07/31/2018 Right lower extremity venous Doppler duplex ultrasound scan. HISTORY: Edema, leg cramps, history of pulmonary embolism, on anticoagulation. COMPARISON: Chest CTA scan 07/14/2018. A color flow Doppler duplex ultrasound examination with spectral analysis was performed on the lower extremity. Noncompressible thrombus is present in the right anterior tibial veins and the right popl iteal vein to the level of the knee. The right trifurcation veins are partially obscured. The right superficial femoral vein and common femoral vein are otherwise unremarkable. Note that Doppler ultrasound is somewhat insensitive below the knee. A venous reflux study was not performed at this time. IMPRESSION: Positive for right lower extremity deep vein thrombosis. Report Dictated By: Sudeep Miner MD at 07/31/2018 9:49 AM Report E-Signed By: Sudeep Miner MD at 07/31/2018 9:52 AM WSN:[email or web address]
== END ==
LOC: US 03:28
PROVIDERS: ATTEND Physician Assistant Medical
DX: I82.401 Acute embolism and thrombosis of unspecified deep veins of right lower extremity (principal)

== ENCOUNTER 2019-01-29 10:33 | Emergency (ER) | payer OTHER ==
[2018-07-15 16:04] VITALS: Wt 117.9 kg
[2019-01-29] MEDS ORDERED: RIVA10TA PO (10:48)
[2019-01-29] MEDS ORDERED: NS(*) 0.9% 1000 ML BAG 1,000 ML IV ONE (11:00)
[2019-01-29 11:07] LABS: PLATELET COUNT, AUTOMATED 203 K/uL (150-450)
[2019-01-29 11:16] LABS: INR 1.17
--- NOTE | 2019-01-29 11:53 | EKG ---
FACILITY: [facility] - [place] PATIENT NAME: EDWIN CHARLES : [id number] MR: [id number] V: [id number] EXAM DATE: ORDERING PHYSICIAN: COLIN BAEZ TECHNOLOGIST: JAVY Toscano Reason : Blood Pressure : / mmHG Vent. Rate : 083 BPM Atrial Rate : 083 BPM P-R Int : 160 ms QRS Dur : 092 ms QT Int : 402 ms P-R-T Axes : 062 245 026 degrees QTc Int : 472 ms Sinus rhythm Right superior axis deviation Pulmonary disease pattern Right ventricular hypertrophy Abnormal ECG When compared with ECG of 14-JUL-2018 08:16, No significant change was found Confirmed by ЕКАТЕРИНА MENG ([id number]) on 01/29/2019 9:12:03 PM Referred By: Confirmed By:ЕКАТЕРИНА MENG
[2019-01-29] MEDS ORDERED: IOPAMIDOL 76% 150 ML INFUS BTL 150 ML ONE (12:17)
--- NOTE | 2019-01-29 12:17 | RADIOLOGY IMAGING REPORT ---
FACILITY: [facility] PATIENT NAME: Italo Johnson : 1960 MR: [id number] V: [id number] EXAM DATE: ORDERING PHYSICIAN: COLIN BAEZ TECHNOLOGIST: Location: [facility] Patient: Italo Johnson : 1960 Visit/Account:[id number] Date of Sevice: 01/29/2019 Exam type: CHEST PA LAT History: dyspnea Comparison: July 14, 2018. Findings: The lungs are free of acute effusions, infiltrates or edema. The cardiac silhouette is normal in siz e. The trachea is in midline. IMPRESSION: 1. No acute cardiac pulmonary process is seen Report Dictated By: Alisa Baxter MD at 01/29/2019 12:12 PM Report E-Signed By: Alisa Baxter MD at 01/29/2019 12:13 PM WSN:[id number]
[2019-01-29] MEDS ORDERED: NS(*) 0.9% 50 ML BAG 50 ML ONE (12:18)
--- NOTE | 2019-01-29 12:54 | ER Report ---
History and Physical Time Seen By MD: 10:50 Hx. of Stated Complaint: REPORTS FEELING DIZZY FOR THE LAST COULE OF DAYS. WORSE WITH POSITION CHANGE, STATES HE WAS SHORT OF BREATH YESTERDAY. HX OF DVT WAS ON ELIQUIS, SWITCHED TO XARELTO TODAY. HPI/ROS CHIEF COMPLAINT: Shortness breath, lightheadedness HISTORY OF PRESENT ILLNESS: 58-year-old male with history of DVT and PE in July, has been on Ahlquist but switched over to xarelto today. Presents with lightheadedness and mild shortness of breath on exertion that has been present for 2 days. Patient states that the lightheadedness was similar to when he had his PE and is concerned that he may have a repeat PE. Patient has been taking his medication as prescribed without missing doses. He has been changed to xarelto because his provider told him it was more effective. Patient denies chest pain. He denies syncope. He denies new leg swelling. He wears a ghazal chu sock on his right leg from prior DVT. He denies new travel or injuries. He has had no bleeding, vomiting, abd pain REVIEW OF SYSTEMS: Constitutional: No fever, no chills. Eyes: no blurred vision ENT: No sore throat. Cardiovascular: No chest pain, no palpitations. Respiratory: above Gastrointestinal: No abdominal pain, no vomiting. Genitourinary: no dysuria Musculoskeletal: No back pain. Skin: No rashes. Neurological: No headache. Remainder of the 14 system rev: Yes Allergies: Coded Allergies: No Known Drug Allergies (Unverified , 07/14/18) Home Meds Reported Medications Rivaroxaban 10 MG (Xarelto 10 MG) 10 Mg Tablet, 10 MG PO 01/29/19 Discontinued Scripts Apixaban (ELIQUIS) 5 Mg Tablet, 5 MG PO BID, #60 TAB Start after initial loading dose Prov:RUMA RIBEIRO DO 07/16/18 Apixaban (ELIQUIS) 5 Mg Tablet, 2 TAB PO BID, #28 TAB Prov:RUMA RIBEIRO DO 07/16/18 Reviewed Nurses Notes: Yes Old Medical Records Reviewed: Yes Hx Smoking: No (CHEWS TOBACCO: 2 cans per week) Smoking Status: Unknown if Ever Smoked Hx Substance Use Disorder: No Hx Alcohol Use: Yes Constitutional Vital Sign - Last 24 Hours 4/26/01/29/19 01/29/19 01/29/19 10:39 10:39 11:00 11:03 Temp 97.9 Pulse 102 80 Resp 16 23 B/P (MAP) 157/100 157/100 (119) 136/87 (103) Pulse Ox 93 92 O2 Delivery Room Air 01/29/19 01/29/19 11:30 11:33 Pulse 78 Resp 18 B/P (MAP) 121/84 (96) Pulse Ox 92 Physical Exam General Appearance: The patient is alert, has no immediate need for airway protection and no signs of toxicity. Eyes: Pupils equal and round no pallor or injection. ENT, Mouth: Mucous membranes are moist. Respiratory: There are no retractions, lungs are clear to auscultation. Cardiovascular: Regular rate and rhythm. no m/r/g Gastrointestinal: Abdomen is soft and non tender, no masses, bowel sounds normal. Neurological: alert, oriented, nad Skin: Warm and dry, no rashes. Musculoskeletal: Extremities are nontender, nonswollen and have full range of motion. DIFFERENTIAL DIAGNOSIS: After history and physical exam differential diagnosis was considered for shortness of breath including but not limited to pulmonary infectious process, COPD, asthma, pulmonary embolus and congestive heart failure, cva, ich, acs, or other cause of syncope Medical Decision Making Data Points Result Diagram: 01/29/19 1047 01/29/19 1047 Laboratory Hematology Test 01/29/19 10:47 Red Blood Count 4.80 M/uL (4.00-5.60) Mean Corpuscular Volume 99.6 fL (80.0-96.0) Mean Corpuscular Hemoglobin 34.0 pg (26.0-33.0) Mean Corpuscular Hemoglobin Concent 34.1 g/dL (32.0-36.0) Red Cell Distribution Width 12.8 % (11.5-14.5) Mean Platelet Volume 7.6 fL (7.2-11.1) Neutrophils (%) (Auto) 65.1 % (39.4-72.5) Lymphocytes (%) (Auto) 27.1 % (17.6-49.6) Monocytes (%) (Auto) 5.2 % (4.1-12.4) Eosinophils (%) (Auto) 1.8 % (0.4-6.7) Basophils (%) (Auto) 0.8 % (0.3-1.4) Nucleated RBC Relative Count (auto) 0.0 /100WBC Neutrophils # (Auto) 3.4 K/uL (2.0-7.4) Lymphocytes # (Auto) 1.4 K/uL (1.3-3.6) Monocytes # (Auto) 0.3 K/uL (0.3-1.0) Eosinophils # (Auto) 0.1 K/uL (0.0-0.5) Basophils # (Auto) 0.0 K/uL (0.0-0.1) Nucleated RBC Absolute Count (auto) 0.00 K/uL Prothrombin Time 14.9 seconds (12.0-14.4) Prothromb Time International Ratio 1.17 Activated Partial Thromboplast Time 36 seconds (23-35) D-Dimer Quantitative (PE/DVT) < 0.27 ug/ml (0-0.50) Sodium Level 137 mmol/L (137-145) Potassium Level 3.8 mmol/L (3.5-5.0) Chloride Level 107 mmol/L (98-107) Carbon Dioxide Level 22 mmol/L (22-30) Blood Urea Nitrogen 18 mg/dl (9-21) Creatinine 0.80 mg/dl (0.66-1.25) Glomerular Filtration Rate Calc > 60.0 Random Glucose 195 mg/dl (75-110) Calcium Level 8.9 mg/dl (8.4-10.2) Total Bilirubin 0.8 mg/dl (0.2-1.3) Aspartate Amino Transf (AST/SGOT) 26 U/L (0-35) Alanine Aminotransferase (ALT/SGPT) 29 U/L (0-56) Alkaline Phosphatase 77 U/L (0-126) Troponin I < 0.012 ng/ml Total Protein 6.8 g/dl (6.3-8.2) Albumin 4.0 g/dl (3.5-5.0) Chemistry Test 01/29/19 10:47 White Blood Count 5.2 k/uL (4.5-11.0) Red Blood Count 4.80 M/uL (4.00-5.60) Hemoglobin 16.3 g/dL (14.0-18.0) Hematocrit 47.8 % (42.0-52.0) Mean Corpuscular Volume 99.6 fL (80.0-96.0) Mean Corpuscular Hemoglobin 34.0 pg (26.0-33.0) Mean Corpuscular Hemoglobin Concent 34.1 g/dL (32.0-36.0) Red Cell Distribution Width 12.8 % (11.5-14.5) Platelet Count 203 K/uL (150-450) Mean Platelet Volume 7.6 fL (7.2-11.1) Neutrophils (%) (Auto) 65.1 % (39.4-72.5) Lymphocytes (%) (Auto) 27.1 % (17.6-49.6) Monocytes (%) (Auto) 5.2 % (4.1-12.4) Eosinophils (%) (Auto) 1.8 % (0.4-6.7) Basophils (%) (Auto) 0.8 % (0.3-1.4) Nucleated RBC Relative Count (auto) 0.0 /100WBC Neutrophils # (Auto) 3.4 K/uL (2.0-7.4) Lymphocytes # (Auto) 1.4 K/uL (1.3-3.6) Monocytes # (Auto) 0.3 K/uL (0.3-1.0) Eosinophils # (Auto) 0.1 K/uL (0.0-0.5) Basophils # (Auto) 0.0 K/uL (0.0-0.1) Nucleated RBC Absolute Count (auto) 0.00 K/uL Prothrombin Time 14.9 seconds (12.0-14.4) Prothromb Time International Ratio 1.17 Activated Partial Thromboplast Time 36 seconds (23-35) D-Dimer Quantitative (PE/DVT) < 0.27 ug/ml (0-0.50) Glomerular Filtration Rate Calc > 60.0 Calcium Level 8.9 mg/dl (8.4-10.2) Total Bilirubin 0.8 mg/dl (0.2-1.3) Aspartate Amino Transf (AST/SGOT) 26 U/L (0-35) Alanine Aminotransferase (ALT/SGPT) 29 U/L (0-56) Alkaline Phosphatase 77 U/L (0-126) Troponin I < 0.012 ng/ml Total Protein 6.8 g/dl (6.3-8.2) Albumin 4.0 g/dl (3.5-5.0) Coagulation Test 01/29/19 10:47 Prothrombin Time 14.9 seconds Prothromb Time International Ratio 1.17 Activated Partial Thromboplast Time 36 seconds D-Dimer Quantitative (PE/DVT) < 0.27 ug/ml EKG/Imaging EKG Interpretation 12 lead EKG: Rhythm: normal sinus rhythm [place]: normal QRS: normal ST segments: normal Findings c/w rvh without acute findings. No change from prior Monitor Interpretation: Normal Sinus Rhythm ED Course/Re-evaluation ED Course 58-year-old male presents with dyspnea and lightheadedness that he is concerned is similar to his PE in July. Patient is hemodynamically stable in the emergency department. He has no focal findings of new DVT. EKG is unchanged. Considered but doubt ACS, pneumonia, or other emergent etiology. After initial negative workup, patient ambulates with pulse ox. Pulse ox is 93% and patient does have some slight dyspnea and lightheadedness. At this point, given history we elected to obtain CT. I discussed CT with the radiologist. CT is significantly improved from prior with either new or residual right sided small PE without right heart strain. I discussed findings with patient who at this point is comfortable going home. He understands that this may be small new clot and will return if he is worse. He will be sure to not miss doses of xarelto. He is comfortable monitoring symptoms at home. In addition, we discussed his hyperglycemia. This may be acute phase reactant due to viral illness or dehydration. Of note, patient feels significantly improved after 1 L of IV fluids. He will continue hydrating at home and will follow-up with his primary doctor for repeat glucose check as well. Decision to Disposition Date: Jan 29, 2019 Decision to Disposition Time: 13:23 Depart Departure Latest Vital Signs Vital Signs Date Time Temp Pulse Resp B/P (MAP) Pulse Ox O2 Delivery O2 Flow Rate FiO2 01/29/19 11:33 78 18 92 01/29/19 11:30 121/84 (96) 01/29/19 10:39 97.9 Room Air Impression: Primary Impression: Dyspnea Additional Impression: Hyperglycemia Condition: Improved Disposition: HOME OR SELF-CARE Referrals: RUMA PATRICIO MD (PCP) 5 Days Patient Instructions: Dyspnea (ED), Hyperglycemia, Non-Diabetic (ED) Additional Instructions: As we discussed, your CT shows a small blood clot that may be remaining from your prior embolism, or a small new area of clot. You are comfortable going home, however understand that you must return if you have increased difficult to breathing, chest pain, or any concerns. In addition, we noted the your blood sugar was elevated. Please follow-up with your primary doctor for repeat blood sugar test to rule out diabetes. Problem Qualifiers Primary Impression: Dyspnea Dyspnea type: unspecified Qualified Codes: R06.00 - Dyspnea, unspecified COLIN BAEZ MD Jan 29, 2019 12:54
--- NOTE | 2019-01-29 13:21 | RADIOLOGY IMAGING REPORT ---
FACILITY: [facility] PATIENT NAME: Italo Johnson : 1960 MR: [id number] V: [id number] EXAM DATE: ORDERING PHYSICIAN: COLIN BAEZ [place]CHN[place] [facility] [place]: [place] : 1960 Visit/Account:[id number] Date of Sevice: 01/29/2019 CT CTA CHEST W & W/O CON HISTORY: hx pe, similar dyspnea, presyncope today ADDITIONAL HISTORY: None. TECHNIQUE: CTA chest with intravenous contrast. Axial imaging acquired following administration of IV contrast timed for maximum opacification of the pulmonary arterial vasculature. Slab 3-D MIP connie nstructed images were also created for further evaluation and interpretation. Reconstruction of the [facility] data set includes multiplanar 2-D in the sagittal and coronal planes and 3-D reconstructed spring nal slab MIP series. 3-D images were created by the technologist.Dose Lowering Technique One of the following dose optimization techniques was utilized in the performance of this exam: Autom ated exposure control; adjustment of the mA and/or kV according to the patient's size; or use of an i terative reconstruction technique. Specific details can be referenced in the facility's radiology C T exam operational policy. CONTRAST: 75 mL Isovue-370 COMPARISON: July 14, 2018 FINDINGS: Lungs/pleura: There is a small amount of scarring in the inferior lingula Heart/vessels: There is a tiny amount of intraluminal thrombus in the lobar, segmental and subsegment al arterial branches to the right lower lobe. This is in a similar location to the extensive thrombu s identified on the prior study and this may actually represent a small amount of chronic thrombus.. Previously described findings of right ventricular strain are no longer seen. Mediastinum/lymph nodes: Negative. Visualized upper abdomen: Negative. Bones/soft tissues: No aggressive appearing bone lesions Additional findings: None IMPRESSION: There is a tiny amount of intraluminal thrombus in the lobar, segmental and subsegmental arterial bra nches to the right lower lobe. This is in a similar location to the extensive thrombus identified on the prior study may represent a small amount of chronic thrombus as opposed to acute pulmonary embol i Small amount scarring in the lingula Results were called to COLIN BAEZ at 01/29/2019 1:17 PM. Report Dictated By: Alisa Baxter MD at 01/29/2019 12:52 PM Report E-Signed By: Alisa Baxter MD at 01/29/2019 1:17 PM WSN:[email or web address]
[2019-01-29 13:30] VITALS: BP 135/99
== END 2019-01-29 13:42 | disposition home or self-care (01) ==
LOC: ER 11:00
DX: R06.00 Dyspnea, unspecified (principal); R73.9 Hyperglycemia, unspecified
CPT/HCPCS: 71046; 71275; 84484; 85025; 85379; 85610; 85730; 93005; 96360; 96361; 99284; J7030; J7050; Q9967; 82040; 82247; 82310; 82374; 82435; 82565; 82947; 84075; 84132; 84155; 84295; 84450; 84460; 84520

== ENCOUNTER → 2019-02-10 | Outpatient (CLI) | payer OTHER ==
[2018-07-15 16:04] VITALS: BMI 31.4
[~2019-02-10] MED LIST changes: +RIVA10TA PO
--- NOTE | 2019-02-10 13:29 | RADIOLOGY IMAGING REPORT ---
FACILITY: [facility] - [place], [place] PATIENT NAME: Italo Johnson : 1960 MR: [id number] V: [id number] EXAM DATE: ORDERING PHYSICIAN: KALYAN MEEHAN TECHNOLOGIST: Location: [facility] Patient: Italo Johnson : 1960 Visit/Account:[id number] Date of Sevice: 02/10/2019 EXAMINATION: Doppler ultrasound deep veins bilateral lower extremities HISTORY: History of pulmonary embolism, clot burden on CTA 01/29/2019, possible old. New onset left ca lf pain, original clot was in right calf. COMPARISON: Right lower extremity ultrasound from 07/31/2018. FINDINGS: Grayscale, duplex and color Doppler interrogation of the bilateral lower extremity deep veins from co mmon femoral vein to proximal calf was completed. The greater saphenous vein in the right and left pr oximal thigh was evaluated using similar technique. Right lower extremity: Common femoral vein: Negative. Femoral vein: Negative. Deep femoral vein: Negative. Popliteal vein: Clot has resolved. Visualized deep calf veins: Clot has resolved. Greater saphenous vein in the proximal thigh: Negative. Popliteal fossa: Negative. Waveforms: Normal respiratory phasicity. Left lower extremity: Common femoral vein: Negative. Femoral vein: Negative. Deep femoral vein: Negative. Popliteal vein: Negative. Visualized deep calf veins: Negative. Greater saphenous vein in the proximal thigh: Negative. Popliteal fossa: Negative. Waveforms: Normal respiratory phasicity. IMPRESSION: No DVT of either lower extremity. Clot in the right popliteal and calf veins has resolved. Report Dictated By: Ary Dunn MD at 02/10/2019 1:22 PM Report E-Signed By: Ary Dunn MD at 02/10/2019 1:24 PM WSN:[id number]
== END ==
LOC: US 11:58
PROVIDERS: ATTEND Family Medicine
DX: I26.09 Other pulmonary embolism with acute cor pulmonale (principal)
CPT/HCPCS: 93970